=== PATIENT | male | born 1980 | race Caucasian/White ===

== ENCOUNTER 2018-10-31 11:01 | Emergency (ER) | payer MEDICAID ==
[~2018-10-31] VITALS: Ht 177.8 cm; Wt 82.0 kg
[2018-10-31 11:10] VITALS: BP 122/80
[2018-10-31] MEDS ORDERED: CLINDAMYCIN 300 MG CAPSULE ONE (11:39)
[2018-10-31] MEDS ORDERED: CLINDAMYCIN 300 MG CAPSULE PO ONE (12:00)
== END 2018-10-31 11:57 | disposition home or self-care (01) ==
LOC: ED 11:26
DX: K04.7 Periapical abscess without sinus (principal); Z87.19 Personal history of other diseases of the digestive system
CPT/HCPCS: 99283